=== PATIENT | female | born 1950 | race Caucasian/White ===

== ENCOUNTER 2019-03-11 11:29 | Outpatient (CLI) | payer MEDICARE ==
[~2019-03-11 11:29] MED LIST: ALBU8.5H8 INH; AMLO10TA8 PO; APIX5TAB PO; ATOR10TA9 PO; BUPR300T4 PO; CARV12.52 PO; DILT90CA PO; DULO30CA2 PO; FLUT1AER PO; FURO20TA3 PO; GABA300C10 PO; LEVO100T5 PO; LOSA100T14 PO; METF750T42 PO; METO-99 PO; OXCA300T19 PO; POTA10TA5 PO; TERB250T14 PO
== END 2019-03-11 23:59 | disposition home or self-care (01) ==
LOC: CFH 11:29
PROVIDERS: ATTEND Internal Medicine
DX: I51.7 Cardiomegaly (principal); I87.8 Other specified disorders of veins; J81.1 Chronic pulmonary edema
CPT/HCPCS: 71046

== ENCOUNTER 2019-04-02 12:58 | Outpatient (CLI) | payer MEDICARE ==
[~2019-04-02 12:58] MED LIST changes: -BUPR300T4 PO; +BUPR300T94 PO
[2019-04-02 13:25] LABS: O2 FLOW ROOM AIR L/min
[2019-04-04] MEDS ORDERED: CLON-364 PO (11:05)
[2019-04-04] MEDS ORDERED: PROP10TA51 PO (11:05)
[2019-04-04] MEDS ORDERED: DULO30CA44 PO (11:05)
[2019-04-04] MEDS ORDERED: MONT10TA11 PO (11:05)
[2019-04-04] MEDS ORDERED: TIOT4MIS2 INH (11:05)
== END 2019-04-02 23:59 | disposition home or self-care (01) ==
LOC: LAB 12:58
PROVIDERS: ATTEND Internal Medicine
DX: I27.20 Pulmonary hypertension, unspecified (principal); J96.11 Chronic respiratory failure with hypoxia
CPT/HCPCS: 36600; 82803

== ENCOUNTER 2019-05-05 22:17 | Inpatient (IN) | payer MEDICARE ==
[~2019-05-05] VITALS: Ht 167.6 cm; Wt 102.6 kg
[~2019-05-05 22:17] MED LIST changes: +CLON-364 PO; +CYCL-259 PO; +DOXY100T PO; +DULO30CA44 PO; +LEVO125T PO; +MONT10TA11 PO; +PIPE3.373 INJ; +PROP10TA51 PO; +SENN-193 PO; +TAMS-11 PO; +TIOT4MIS2 INH
[2019-05-05] MEDS ORDERED: SODIUM CHLORIDE FLUSH 10ML SYR IVF ONE (22:30)
[2019-05-05] MEDS ORDERED: ALBUTEROL/IPRATROPIUM 2.5MG/0.5MG, 3 ML ONE (22:59)
[2019-05-05] MEDS ORDERED: FUROSEMIDE 40 MG/4 ML IV ONE (23:00)
[2019-05-05 23:06] LABS: BASOPHILS # (AUTO) 0.08 x10^3/uL (0-0.1); BASOPHILS % (AUTO) 1 % (0-1); EOSINOPHILS # (AUTO) 0.28 x10^3/uL (0-0.4); EOSINOPHILS % (AUTO) 3 % (1-7); LYMPHOCYTES # (AUTO) 1.94 x10^3/uL (1-3.4); LYMPHOCYTES % (AUTO) 17 % (22-44); MD NO; MEAN CORPUSCULAR HEMOGLOBIN 32.1 pg (27.0-34.8); MEAN CORPUSCULAR HGB CONC 32.7 g/dL (32.4-35.8); MEAN CORPUSCULAR VOLUME 98.1 fL (80-100); MEAN PLATELET VOLUME 9.3 fL (7.4-10.4); MONOCYTES # (AUTO) 0.76 x10^3/uL (0.2-0.8); MONOCYTES % (AUTO) 7 % (2-9); NEUTROPHILS # (AUTO) 8.35 x10^3/uL (1.8-6.8); NEUTROPHILS % (AUTO) 73 % (42-75); PLATELET COUNT 217 x10^3/uL (130-400); RED BLOOD COUNT 3.44 x10^6/uL (3.82-5.3); RED CELL DISTRIBUTION WIDTH 15.5 % (9.6-15.2)
[2019-05-05 23:16] LABS: ALANINE AMINOTRANSFERASE 14 U/L (12-78); ALBUMIN 3.4 g/dL (3.4-5.0); ANION GAP 5 mmol/L (5-15); CALCIUM 8.7 mg/dL (8.5-10.1); CHLORIDE 104 mmol/L (98-107); CREATININE 1.08 mg/dL (0.55-1.02)
[2019-05-05 23:20] LABS: ALKALINE PHOSPHATASE 107 U/L (45-117); BILIRUBIN,TOTAL 0.1 mg/dL (0.2-1.0); TROPONIN I < 0.015 ng/mL (0.000-0.045)
[2019-05-05] MEDS ORDERED: FUROSEMIDE 20 MG/2 ML ONE (23:31)
--- NOTE | 2019-05-05 23:43 | NUR ---
PT MEDICATED PER MAR, UP TO BS COMMODE WITH X1 ASSIST. PT UNSTEADY. EDUCATED TO NOT GET UP WITHOUT ASSISTANCE. REEDUCATED TO USE CALL LIGHT.
[2019-05-06] VITALS (8 sets, daily range): BP systolic 93–170; BP diastolic 59–93
[2019-05-06] MEDS ORDERED: TEMAZEPAM 15 MG CAPSULE PO PRN (00:30)
[2019-05-06] MEDS ORDERED: LIDODERM 5% PATCH TD PRN (00:30)
[2019-05-06] MEDS ORDERED: ONDANSETRON 2MG/ML, 2ML IVPush PRN (00:30)
[2019-05-06] MEDS ORDERED: ACETAMINOPHEN 325 MG TABLET PO PRN (00:30)
[2019-05-06] MEDS ORDERED: DOCUSATE 100 MG CAPSULE PO PRN (00:30)
[2019-05-06] MEDS ORDERED: hydrALAzine 20 MG/ML, 1ML IVPush PRN (00:30)
[2019-05-06] MEDS ORDERED: MAGNESIUM SULFATE PMX 4GM/100M 100 ML IV ONE (01:30)
[2019-05-06 05:45] LABS: TROPONIN I < 0.015 ng/mL (0.000-0.045)
[2019-05-06] MEDS: CARVEDILOL 25 MG TABLET PO SCH ×2 (08:30→17:00)
[2019-05-06] MEDS: TAMSULOSIN 0.4 MG CAP.ER.24H PO SCH (09:07)
[2019-05-06] MEDS: DILTIAZEM 90 MG CAP.ER.12H PO SCH ×2 (09:07→20:29)
[2019-05-06] MEDS: LEVOTHYROXINE 150 MCG TABLET PO SCH (09:07)
[2019-05-06] MEDS: FUROSEMIDE 40 MG/4 ML IV SCH ×2 (09:07→17:00)
[2019-05-06] MEDS: MONTELUKAST 10 MG TABLET PO SCH (09:07)
[2019-05-06] MEDS: DULOXETINE 30 MG CAPSULE.DR PO SCH (09:07)
[2019-05-06] MEDS ORDERED: PROPRANOLOL 10 MG TABLET PO PRN (12:00)
[2019-05-06 12:01] LABS: TROPONIN I < 0.015 ng/mL (0.000-0.045)
[2019-05-06] MEDS: OXCARBAZEPINE 300MG TABLET PO SCH (17:54)
[2019-05-06] MEDS: BUPROPION SR 150 MG TABLET PO SCH (20:29)
[2019-05-06] MEDS ORDERED: ATORVASTATIN 10 MG TABLET PO SCH (21:00)
[2019-05-07 00:13] VITALS: BP 137/75
[2019-05-07 05:13] LABS: BASOPHILS # (AUTO) 0.09 x10^3/uL (0-0.1); BASOPHILS % (AUTO) 1 % (0-1); EOSINOPHILS # (AUTO) 0.41 x10^3/uL (0-0.4); EOSINOPHILS % (AUTO) 3 % (1-7); LYMPHOCYTES # (AUTO) 2.84 x10^3/uL (1-3.4); LYMPHOCYTES % (AUTO) 23 % (22-44); MD NO; MEAN CORPUSCULAR HGB CONC 32.8 g/dL (32.4-35.8); MEAN CORPUSCULAR VOLUME 97.7 fL (80-100); MEAN PLATELET VOLUME 9.6 fL (7.4-10.4); MONOCYTES # (AUTO) 0.89 x10^3/uL (0.2-0.8); MONOCYTES % (AUTO) 7 % (2-9); NEUTROPHILS # (AUTO) 8.16 x10^3/uL (1.8-6.8); NEUTROPHILS % (AUTO) 66 % (42-75); PLATELET COUNT 214 x10^3/uL (130-400); RED CELL DISTRIBUTION WIDTH 14.8 % (9.6-15.2)
[2019-05-07 05:22] LABS: ANION GAP 5 mmol/L (5-15); CALCIUM 9.1 mg/dL (8.5-10.1); CHLORIDE 98 mmol/L (98-107); CREATININE 0.96 mg/dL (0.55-1.02)
[2019-05-07] MEDS: CARVEDILOL 25 MG TABLET PO SCH (05:27)
[2019-05-07] MEDS: LEVOTHYROXINE 150 MCG TABLET PO SCH (05:27)
[2019-05-07 07:34] VITALS: BP 99/57
[2019-05-07 07:39] VITALS: BP 124/71
[2019-05-07 07:43] VITALS: BP 129/79
[2019-05-07] MEDS ORDERED: POTASSIUM CHLORIDE 20 MEQ TAB.ER.PRT PO ONE ×2 (08:00→10:00)
[2019-05-07] MEDS ORDERED: MAGNESIUM SULFATE PMX 2GM/50ML 50 ML IV ONE (08:00)
[2019-05-07] MEDS ORDERED: FUROSEMIDE 10 MG/ML ORAL SOL PO SCH (09:00)
[2019-05-07] MEDS ORDERED: FUROSEMIDE 40 MG/4 ML IV SCH (09:00)
[2019-05-07] MEDS: MONTELUKAST 10 MG TABLET PO SCH (09:45)
[2019-05-07] MEDS: TAMSULOSIN 0.4 MG CAP.ER.24H PO SCH (09:45)
[2019-05-07] MEDS: BUPROPION SR 150 MG TABLET PO SCH (09:45)
[2019-05-07] MEDS: DULOXETINE 30 MG CAPSULE.DR PO SCH (09:46)
[2019-05-07] MEDS: OXCARBAZEPINE 300MG TABLET PO SCH (09:46)
[2019-05-07] MEDS: DILTIAZEM 90 MG CAP.ER.12H PO SCH (09:46)
[2019-05-07] MEDS ORDERED: LEVO150T PO (10:16)
[2019-05-07] MEDS ORDERED: POTA10TA5 PO (10:16)
[2019-05-07] MEDS ORDERED: FURO40TA6 PO (10:16)
== END 2019-05-07 13:10 | disposition home or self-care (01) | DRG 292 ==
LOC: ED 05-06 00:45 → EDIP 05-06 00:55 → 5SO 05-06 01:08
PROVIDERS: ADMIT Hospitalist; ATTEND Hospitalist
DX: I11.0 Hypertensive heart disease with heart failure (principal); D68.59 Other primary thrombophilia; J96.10 Chronic respiratory failure, unspecified whether with hypoxia or hypercapnia; I50.33 Acute on chronic diastolic (congestive) heart failure; D64.9 Anemia, unspecified; E03.9 Hypothyroidism, unspecified; E11.43 Type 2 diabetes mellitus with diabetic autonomic (poly)neuropathy; E78.00 Pure hypercholesterolemia, unspecified; I27.20 Pulmonary hypertension, unspecified; I48.91 Unspecified atrial fibrillation; J44.9 Chronic obstructive pulmonary disease, unspecified; Z96.643 Presence of artificial hip joint, bilateral; I35.8 Other nonrheumatic aortic valve disorders; R29.6 Repeated falls; Z79.899 Other long term (current) drug therapy; Z83.3 Family history of diabetes mellitus; Z85.3 Personal history of malignant neoplasm of breast; Z86.711 Personal history of pulmonary embolism; Z87.01 Personal history of pneumonia (recurrent); Z87.891 Personal history of nicotine dependence; Z90.12 Acquired absence of left breast and nipple; Z99.81 Dependence on supplemental oxygen
CPT/HCPCS: 36415; 71045; 80048; 80053; 83605; 83735; 83880; 84100; 84439; 84443; 84484; 85025; 87040; 93005; 93880; 94640; 96374; G0378; J1940; J3475

== ENCOUNTER 2019-07-29 09:10 | Outpatient (CLI) | payer MEDICARE ==
[~2019-07-29 09:10] MED LIST changes: +FURO40TA6 PO; +LEVO150T PO
== END 2019-07-29 23:59 | disposition home or self-care (01) ==
LOC: PETCFH 09:10
PROVIDERS: ATTEND Internal Medicine
DX: R91.8 Other nonspecific abnormal finding of lung field (principal); N85.2 Hypertrophy of uterus; Q63.2 Ectopic kidney
CPT/HCPCS: 78815; A9552

== ENCOUNTER → 2020-06-02 | Outpatient (CLI) | payer MEDICARE ==
[~2020-06-02] MED LIST changes: +AMLO-211 PO; -AMLO10TA8 PO; -CYCL-259 PO; +CYCL10TA2 PO; -MONT10TA11 PO; +MONT10TA17 PO
== END | disposition home or self-care (01) ==
LOC: CFH 10:30
PROVIDERS: ATTEND Internal Medicine
DX: R91.8 Other nonspecific abnormal finding of lung field (principal); J84.111 Idiopathic interstitial pneumonia, not otherwise specified; J82.81 Chronic eosinophilic pneumonia; J67.9 Hypersensitivity pneumonitis due to unspecified organic dust; D86.9 Sarcoidosis, unspecified; M51.34 Other intervertebral disc degeneration, thoracic region; N28.1 Cyst of kidney, acquired
CPT/HCPCS: 71250